=== PATIENT | female | born 1960 | race Caucasian/White ===

== ENCOUNTER 2023-04-11 18:15 | Emergency (ER) | payer OTHER, SELFPAY ==
[2023-04-11 18:17] VITALS: BP 133/84; PULSE 76; RESP 18; TEMP 35.8; O2SAT 100
--- NOTE | 2023-04-11 18:40 | US_ITS ---
STUDY: VENOUS DOPPLER ULTRASOUND - LEFT LOWER EXTREMITY REASON FOR EXAM: Female, 62 years old. LT LEG PAIN TECHNIQUE: Ultrasound evaluation of the deep vein system to include carbajal-scale imaging and compression was performed. Carbajal-scale imaging and Doppler sonographic evaluation, including duplex spectral analysis and qualitative color flow sonography, was performed. COMPARISON: None. FINDINGS: Common Femoral Vein: Normal compression, spontaneity and augmentation. Normal color Doppler. Common Femoral Vein/Greater Saphenous Junction: Normal compression, spontaneity and augmentation. Normal color Doppler. Deep Femoral Vein: Normal compression, spontaneity and augmentation. Normal color Doppler. Femoral Proximal: Normal compression, spontaneity and augmentation. Normal color Doppler. Femoral Middle: Normal compression, spontaneity and augmentation. Normal color Doppler. Femoral Distal: Normal compression, spontaneity and augmentation. Normal color Doppler. Popliteal Vein: Normal compression, spontaneity and augmentation. Normal color Doppler. Posterior Tibial Vein: Normal compression, spontaneity and augmentation. Normal color Doppler. Peroneal Vein: Normal compression, spontaneity and augmentation. Normal color Doppler. Incidental finding of probable Tucker''s cyst measuring 3.7 x 2.2 x 0.5 cm US/Venous Duplex Imag/Limited/Uni IMPRESSION: No evidence of deep venous thrombosis. 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 Electronically Signed: Juan Pablo Wadsworth MD at 19:18 EST ,
--- NOTE | 2023-04-11 19:55 | EDS_ITS ---
HPI History of Present Illness Chief Complaint: Lower Extremity Injury Informant: patient Narrative Narrative: Is a 62-year-old female presenting with some increased vague pain of the left lower extremity as well as some mild swelling in the setting of a recent knee injury. She is worried about a DVT. Denies any chest pain or shortness of breath. Denies any numbness or tingling. Denies significant back pain. Denies any new injury. Is following up with her orthopedist in [place] for her knee injury was a suspect is hamstring injury however she also suspects a slight meniscal tear. Is taking NSAIDs for symptoms. Denies any history of DVT or PE. No other complaints at this time. [facility] Medical History Knee injury Allergy/AdvReac Type Severity Reaction Status Date / Time No Known Allergies Allergy Verified 04/11/23 18:16 Social History Smoking Status: Never smoker ROS ROS ED Constitutional Constitutional ED: Denies chills or fever(s) Cardiovascular Cardiovascular: Denies chest pain Respiratory/Chest Respiratory/Chest: Denies cough or dyspnea Musculoskeletal Musculoskeletal: Reports other Details: left knee pain, swelling ; Denies back pain Integumentary Denies rash Neurologic Neurologic: Denies paresthesias or weakness EXAM Physical Exam Const Vital Signs: 04/11/23 18:17 Temperature 96.5 F L Temperature Source Temporal Pulse Rate 76 Respiratory Rate 18 Blood Pressure 133/84 H Blood Pressure Mean 100 Pulse Ox 100 Oxygen Delivery Method Room Air Positive well nourished and well developed General Appearance ED: well developed and NAD HEENT normocephalic Neck supple Resp normal respiratory effort Extremity full ROM Extremity Narrative: Normal range of motion. Normal strength. Normal extensor mechanism. No significant edema appreciated. No significant joint effusion appreciated. No pinpoint tenderness. Neuro oriented x3, moves all extremities and no sensory deficits noted Sensorium / Orientation: alert Psych mental status grossly normal MDM MDM MDM Narrative Medical decision making narrative: Is evaluated for some worsening but vague left lower extremity pain in the setting of a recent knee injury. She was previously a knee immobilizer but now has a knee brace on. She is concerned she might developed DVT which is on the differential. Venous duplex is obtained which is negative for DVT but does show probable small Tucker's cyst in the posterior fossa. This could explain her increased pain. Counseled on ultrasound findings. We will continue to follow- up outpatient. Counseled that if she does in fact have a hamstring injury which she was previously diagnosed with this could be that fluid injury and that she might require physical therapy. She has no other symptoms or concerns at this time. Discharged home in stable condition. Is able to ambulate. Radiography Diagnostic Testing: Clinical Impression(s) from Imaging Studies Venous Duplex 04/11/23 18:40 IMPRESSION: No evidence of deep venous thrombosis. 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 Electronically Signed: Juan Pablo Wadsworth MD at 19:18 EST , Discharge Plan Triage Chief Complaint: Lower Extremity Injury ED Provider: Mona Ruiz Dx/Rx/DC Orders Clinical Impression: No deep vein thrombosis (DVT), Leg pain, left, Tucker's cyst Instructions: ED Knee Pain of Uncertain Cause, ED Peripheral Edema, Unilateral Primary Care Provider: SONYA STORY Referrals: NOT,DEFINED [Non-Staff] - Activity Restrictions/Additional Instructions: There is no signs of DVT on ultrasound today. There is a small fluid collection behind your left knee which could be Tucker's cyst. Please continue follow-up with the orthopedist. Disposition Disposition: Home, Self Care Discharge Date/Time: 04/11/23 20:59
--- NOTE | 2023-04-11 19:59 | ED.RN ---
DR PARKINSON EXAMINED AND REVIEWED CT RESULTS WITH PATIENT AT THIS TIME IN TRIAGE. PT DENIES QUESTIONS OR CONCERNS
== END 2023-04-11 20:59 | disposition home or self-care (01) ==
LOC: ED 20:12
PROVIDERS: Emergency Provider Emergency Medicine; Visit Provider Emergency Medicine
DX: M71.22 Synovial cyst of popliteal space [Baker], left knee (principal); M79.662 Pain in left lower leg
CPT/HCPCS: 93971; 99282